=== PATIENT | male | born 1955 | race Caucasian/White ===

== ENCOUNTER → 2019-07-09 | Day surgery (SDC) | payer MEDICARE, BC ==
[~2019-07-09] MED LIST: Buffered Lidocaine 1% SYRIN* 1 ML/SYRINGE INTRADERM ONE; Bupivacaine 0.5% W/EPI SDV* 10 ML VIAL INJ ONE; Clindamycin 900 MG IVPREMIX(* 900 MG/50 ML SDV IV ONE; Clindamycin 900 MG/D5W BAG(*) 900 MG/50 ML BAG IVPB ONE; DiMENhydriNATE IV* 50 MG/ML VIAL IV PUSH PRN; EPHEDrine (Pressors)* 50 MG/ML VIAL ONE; Famotidine IV* 10 MG/ML 2 ML (20 mg) IV ONE; Famotidine IV* 10 MG/ML 2 ML (20 mg) ONE; Glycopyrrolate IV* 0.2 MG/ML 1 ML VIAL ONE; HYDROcodone/ACETAMIN 5-325 MG* 1 TAB PO PRN; Ketorolac INJ* 30 MG/ML 1 ML VIAL IV PRN; Ketorolac INJ* 30 MG/ML 1 ML VIAL ONE; Lactated Ringers 1000 ML Bag* 1,000 ML IV SCH; Lidocaine 2% PF * 5 ML VIAL ONE; Metoprolol Tartrate IV* 1 MG/ML 5 ML VIAL ONE; Midazolam* 1 MG/ML 5 ML VIAL (5 MG) ONE; Naloxone* 0.4 MG/ML 1 ML VIAL IV PRN; Neostigmine Methylsulfate* 3 MG/3 ML SYRINGE ONE; Ondansetron INJ* 2 MG/ML VIAL ONE; Phenylephrine 10 MG/ML VIAL* 1 ML VIAL ONE; Propofol* 10 MG/ML 20 ML BTL ONE; Rocuronium* 10 MG/ML VIAL ONE; Succinylcholine* 20 MG/ML 10 ML VIAL ONE; fentaNYL* 50 MCG/ML 2 ML VIAL (100 MCG VIAL) IV PRN; fentaNYL* 50 MCG/ML 2 ML VIAL (100 MCG VIAL) ONE; fentaNYL* 50 MCG/ML 5 ML VIAL (250 MCG VIAL) ONE; oxyCODONE/Acetamin 5/325 MG* TAB ONE; oxyCODONE/Acetamin 5/325 MG* TAB PO PRN
[2019-07-09 20:20] VITALS: BP 147/78
--- NOTE | 2019-07-10 22:42 | OP ---
OPERATIVE REPORT: DATE OF OPERATION: 07/09/19 DATE OF : 51 SURGEON: Emile Tee MD OLDER ADULT SOCIAL WORK SPECIALIST: MICHAEL Funez A physician asset protection assistant was required for the length of the procedure for assistance with the patient's positioning, retraction, instrumentation, and closure. ANESTHESIOLOGIST: Julio César Cramer MD. ANESTHESIA: General anesthesia, local anesthesia using 10 cc of Marcaine 0.5% with epinephrine. PRE-OP DIAGNOSIS: Left ankle trimalleolar fracture. POST-OP DIAGNOSIS: Left ankle trimalleolar fracture. OPERATIVE PROCEDURE: Open reduction and internal fixation, left ankle trimalleolar fracture without posterior instrumentation. Medial and lateral malleoli were instrumented. [id number] TIME: 135 minutes. Xywk-zp-qdey time was normal than average given that it had been 3 weeks from the fracture requiring some more debridement and effort for fracture fragment reduction. TOURNIQUET TIME: 120 minutes. ANTIBIOTICS: Clindamycin 900 mg IV. IV FLUIDS: 1800 cc of crystalloid. SPECIMEN: None. EBL: Minimal. COMPLICATIONS: None IMPLANTS: Synthes one-third tubular plate about the lateral ankle with 3.5 mm non- locking, 3.5 mm locking and 4.0 mm non-locking screws placed through it. As well placed using lag technique directly across the fracture site was one fully threaded 3.5 mm non-locking screw. About the medial ankle were 2 cannulated 4.0 mm partially threaded, long threaded screws. RADIATION EXPOSURE: C-arm. Time of exposure not recorded by me. INDICATION FOR PROCEDURE: The patient is a 63-year-old male with multiple medical problems including a history of cardiac arrest in 2011, hypertropic cardiomyopathy, endocarditis history, coronary artery disease, diabetes mellitus , BMI of 41.4 and a weight of 314 pounds, who fractured his left ankle while on vacation in [facility] on 06/19/19, 20 days prior to surgery. The patient went to [facility] after his fall in [facility] It took 3 reductions in the emergency department to obtain an adequate reduction of the patient's subluxed ankle joint. The patient was splinted and then followed up with me in clinic. We removed the split in clinic to do a skin check and the patient had very large blood blisters throughout the ankle. This was very significant. They were in the path of future skin incisions required for surgery. The blood in the blisters indicated that they were more deep blisters and they were phenomenally large in size. At that clinic visit, I unroofed all the blisters. I placed a non-adherent dressing followed by dry sterile dressing, followed by short leg cast. We instructed the patient on strict left lower extremity elevation and warmed him of the consequences of not doing this, including delayed surgery in future, wound breakdown and wound infection. The following week, when we did a skin check, the patient's skin at the location of the blisters had healed remarkably, although not yet fully. The patient still had significant soft tissue swelling. The patient was placed back in a short leg cast, told to be better about elevation of the left lower extremity and presents for operation today. Discussed risks and potential complications of surgery including bleeding, infection, nerve or blood vessel injury, ankle pain, stiffness, osteoarthritis. Again, the patient is well aware of the risks of infection, wound breakdown, need for removal of future hardware. I had obtained the CT scan which showed the posterior malleolar fracture fragment to be small and minimally displaced, not requiring fixation. I spoke to the patient about fixation, reduction of the medial and lateral malleoli. I told him I will stress test the syndesmosis to see if that would need fixing. DESCRIPTION OF PROCEDURE: In the preop holding, the patient signed a written consent. Operative extremity was marked in the preoperative holding. The patient was taken back to the operating room and placed supine on the operating room table, sedated and intubated. Tourniquet placed around the left thigh. A blanket bump placed under the dheeraj- pelvis. Bone bump placed under the left lower extremity. The left lower extremity was prepped and draped. The ankle area was vigorously prepped so any loose skin would exfoliate. However, I did not use a bristling scrub brush to brush aside on it. Surgical time-out was performed. Esmarch was applied and tourniquet was elevated to 300 mmHg. I started at about the medial ankle because of the non-comminuted nature of the fracture there. Medial approach to the left ankle. Skin through subcutaneous tissue to bone. Retracted saphenous neurovascular structures away from fracture site. Opened fracture site. Debrided a significant amount of new fibrous tissue. Performed reduction. Had provisional reduction with some K-wires. Next placed two 1.2 mm K-wires across the fracture site. Drilled over this and placed 2 partially threaded 4.0 mm cannulated screws. Purchase with each of them was excellent. Radiographs with C-arm intraoperatively confirmed excellent location of the K- wires. Excellent reduction and location of the cannulated screws. This made the mortise appear very symmetric. Irrigation of the medial ankle wound. Partial closure of the subcutaneous layer with buried simple stitches using Vicryl 3.0 suture. I moved to the lateral ankle. I made incision, for standard approach to the lateral ankle. Dissected down through subcutaneous tissue to a periosteal hematoma layer. Incised this longitudinally to reveal bone. Careful not to injure any low lying superficial peroneal nerve branch. None was encountered intraoperative. Fracture site was identified. It was quite displaced and shortened. I debrided fracture with a curette rongeur. Reduction at first not feasible. I asked anesthesia for some paralysis and we tried harder and we were able to bring the fibula out to length, corrective rotation. With the fibula reduced, I placed 2 lag screws using classic lag technique, across the fracture site from posterior to anterior using 3.5 mm screws. Purchase in the more proximal screw was excellent. Purchase in the more distal screw was not excellent. I left these [address] for now. I sized and found an appropriate location for one-third tubular plate. Radiographs, 3 views, confirmed excellent reduction of bones and location of plate and lag screws. I was concerned that the more distal lag screw might enter slightly into the syndesmotic space between bones. I contoured the one-third tubular plate. I placed non-locking screws through the proximal and distal of the fracture site. I filled the plate up with screws , the remaining locking. Obtained final radiographs. I liked position of hardware and reduction of bone. I removed the more distal of the 2 lag screws because of poor purchase and concerns about its length. I performed a Cotton test and confirmed no unstable syndesmosis. Irrigation of lateral wound. Closure of some deeper fascia with figure-of- eight stitches using Vicryl 2-0 suture. Closure of the subcutaneous tissue with buried simple stitches using Vicryl 3-0 suture. Closure of the skin on the medial and lateral side with clayton. The tourniquet had been dropped at the 2-hour point, 120 minutes. Local anesthesia injected about each incision site. For dressing, Xeroform, 4x4s, sterile Webril, then Webril, then a posterior SLAP and a sugar tong splint, all with plaster, overwrapped with an Heath bandage in the ankle and then a plantar grade position. The patient was awakened, extubated and transferred to the PACU. DISPOSITION: The patient knows he is to be non-weightbearing at all times left lower extremity. He can use a knee scooter or crutches. The patient is to take aspirin 325 mg p.o. b.i.d. x2 weeks for DVT prophylaxis. Because of some allergies, we will have him on doxycycline b.i.d. x7 days for infection prophylaxis. This is given the patient's multiple medical problems, his obesity , his diabetes and the high energy nature of his trimalleolar fracture subluxation. The patient was given Percocet as needed for pain control. The patient will follow up with me in clinic in 10 to 14 days postoperatively for wound check, x-rays, and transition to cast. [id number]/CPS #: [id number] MTDD
== END | disposition home or self-care (01) ==
LOC: OR 11:32
PROVIDERS: ATTEND Orthopaedic Surgery
DX: S82.852A Displaced trimalleolar fracture of left lower leg, initial encounter for closed fracture (principal); E11.9 Type 2 diabetes mellitus without complications; Z79.84 Long term (current) use of oral hypoglycemic drugs; Z88.0 Allergy status to penicillin; Z88.1 Allergy status to other antibiotic agents; I44.7 Left bundle-branch block, unspecified; E78.5 Hyperlipidemia, unspecified; I42.2 Other hypertrophic cardiomyopathy; G47.33 Obstructive sleep apnea (adult) (pediatric); Z95.810 Presence of automatic (implantable) cardiac defibrillator; E05.90 Thyrotoxicosis, unspecified without thyrotoxic crisis or storm; W18.2XXA Fall in (into) shower or empty bathtub, initial encounter; Y92.9 Unspecified place or not applicable
CPT/HCPCS: 76000; A9270-GY; C1713; C1776; J0330; J1885; J2250; J2405; J2704; J2710; J3010; J3490

== ENCOUNTER 2024-07-05 17:21 | Inpatient (IN) ==
[2024-07-05 18:59] LABS: ABS Lymphocytes 0.5 10^3/uL (1.0-4.8); ABS Monocytes 1.4 10^3/uL (0.0-1.1); ABS Neutrophils 16.1 10^3/uL (1.5-7.6); ABS Nucleated RBC 0.02 10^3/ul; Eosinophil % 0.1 %; Hematocrit 46.8 % (38-53); Lymphocyte % 2.8 %; Mean Corpuscular Hemoglobin 30.5 pg (27-33); Mean Corpuscular Hgb Conc 34.3 g/dL (31-36); Mean Corpuscular Volume 88.9 fL (80-97); Mean Platelet Volume 7.2 fL (7.5-11.2); Nucleated Red Blood Cells % 0.1 %/100WBC (0.0-0.8); Platelet Count 191 10^3/uL (150-450); Red Blood Count 5.27 10^6/uL (4.06-5.63); Red Cell Distribution Width 14.5 % (12-17)
[2024-07-05 19:23] LABS: High Sens Troponin Baseline 15 pg/mL (<20)
[2024-07-05 19:35] LABS: ALT 22 U/L (7-52); AST 19 U/L (13-39); Albumin 4.3 g/dL (3.2-5.2); Albumin/Globulin Ratio 1.3 (1-3); Alkaline Phosphatase 68 U/L (35-149); Anion Gap 9 mmol/L (2-16); Blood Urea Nitrogen 22 mg/dL (6-24); C Reactive Protein 143.31 mg/L (<8.01); CO2 Carbon Dioxide 25 mmol/L (22-32); Calcium 9.4 mg/dL (8.6-10.3); Chloride 100 mmol/L (101-111); Creatinine, Serum 1.18 mg/dL (0.67-1.17); Globulin 3.2 g/dL (2-4); Glucose 144 mg/dL (70-100); Lipase < 10 U/L (11.0-82.0); Potassium 4.6 mmol/L (3.5-5.0); Sodium 134 mmol/L (135-145); Total Bilirubin 3.2 mg/dL (0.2-1.0); Total Protein 7.5 g/dL (6.4-8.9); eGFR CKD-EPI 66.4 (>60)
[2024-07-05 20:14] LABS: Urine Appearance Clear; Urine Bilirubin Negative (Negative); Urine Blood Negative (Negative); Urine Color Yellow; Urine Glucose Negative (Negative); Urine Ketones Negative (Negative); Urine Nitrite Negative (Negative); Urine Protein 1+ (>=30 mg/dL) (Negative); Urine Specific Gravity 1.019 (1.002-1.030); Urine Urobilinogen Negative (Negative); Urine pH 5.5 (5.0-8.0)
[2024-07-05 20:16] LABS: Urine Bacteria Absent /HPF (Absent); Urine Red Blood Cell Trace(0-2/hpf) /HPF (0-Trace); Urine White Blood Cell Trace(0-5/hpf) /HPF (0-Trace)
[2024-07-05] MEDS: Iodixanol (CONTRAST) 320 MG/ML 100 ML SDV IV ONE (20:28)
[2024-07-05 20:36] LABS: High Sensitivity Troponin 1 Hr 16 pg/mL (<20)
[2024-07-05] MEDS: NS 0.9% 1000 ml BAG 1,000 ML IV ONE (20:39)
[2024-07-05] MEDS ORDERED: Dextrose 50% Syringe 50 ml 25 GM/50 ML SYRINGE IV PUSH PRN (22:06)
[2024-07-05] MEDS ORDERED: Sulfur Hexaflouride MICROSPHR 25 MG VIAL IV PRN (22:07)
[2024-07-05] MEDS: Ondansetron 4 mg VIAL 2 MG/ML 2 ml VIAL IV PRN (23:04)
[2024-07-05 23:07] LABS: TSH Ultra Thyroid Stim Horm 0.36 mcIU/mL (0.34-5.60)
[2024-07-05] MEDS: Lactated Ringers 1000 ml BAG 1,000 ML IV ONE (23:15)
[2024-07-06] MEDS: metroNIDAZOLE IV 500 MG/100ML 500 MG/100 ML BAG IVPB ONE (00:03)
[2024-07-06] MEDS: Acetaminophen IV 1 GM/100ML 1,000 MG/100 ML BAG IV PRN (03:57)
[2024-07-06] MEDS: Lactated Ringers 1000 ml BAG 1,000 ML IV ONE (06:17)
[2024-07-06 06:39] LABS: Hematocrit 43.1 % (38-53); Hemoglobin 14.6 g/dL (13.2-16.3); Mean Corpuscular Volume 88.2 fL (80-97); Mean Platelet Volume 7.1 fL (7.5-11.2); Platelet Count 169 10^3/uL (150-450); Red Blood Count 4.89 10^6/uL (4.06-5.63); Red Cell Distribution Width 14.8 % (12-17); White Blood Count 12.5 10^3/uL (3.6-10.2)
[2024-07-06 06:58] LABS: ABS Lymphocytes 0.4 10^3/uL (1.0-4.8); ABS Monocytes 1.1 10^3/uL (0.0-1.1); ABS Neutrophils 10.5 10^3/uL (1.5-7.6); Eosinophil % 0.1 %; Lymphocyte % 3.3 %
[2024-07-06 07:26] LABS: Anion Gap 10 mmol/L (2-16); Blood Urea Nitrogen 26 mg/dL (6-24); CO2 Carbon Dioxide 21 mmol/L (22-32); Calcium 8.2 mg/dL (8.6-10.3); Chloride 103 mmol/L (101-111); Creatinine, Serum 1.17 mg/dL (0.67-1.17); Glucose 145 mg/dL (70-100); Sodium 134 mmol/L (135-145); eGFR CKD-EPI 67.1 (>60)
[2024-07-06] MEDS: metroNIDAZOLE IV 500 MG/100ML 500 MG/100 ML BAG IVPB SCH (08:08)
[2024-07-06 08:22] LABS: Magnesium 1.8 mg/dL (1.9-2.7); Potassium Redraw 4.3 mmol/L (3.5-5.0)
[2024-07-06] MEDS: Magnesium Sulfate 2 gm BAG 2 GM/50 ML BAG IVPB ONE (11:45)
[2024-07-06] MEDS: Magnesium Sulfate 2 gm BAG 2 GM/50 ML BAG ONE (11:54)
[2024-07-07 05:58] LABS: ABS Eosinophils 0.3 10^3/uL (0.0-0.5); ABS Lymphocytes 0.7 10^3/uL (1.0-4.8); ABS Monocytes 1.2 10^3/uL (0.0-1.1); ABS Neutrophils 7.8 10^3/uL (1.5-7.6); Eosinophil % 2.6 %; Hemoglobin 13.5 g/dL (13.2-16.3); Lymphocyte % 6.8 %; Mean Corpuscular Hemoglobin 30.3 pg (27-33); Mean Corpuscular Hgb Conc 33.8 g/dL (31-36); Mean Corpuscular Volume 89.5 fL (80-97); Mean Platelet Volume 7.8 fL (7.5-11.2); Platelet Count 171 10^3/uL (150-450); Red Blood Count 4.46 10^6/uL (4.06-5.63)
[2024-07-07 06:16] LABS: Calcium 8.8 mg/dL (8.6-10.3); Creatinine, Serum 1.19 mg/dL (0.67-1.17); Potassium 4.4 mmol/L (3.5-5.0); eGFR CKD-EPI 65.7 (>60)
[2024-07-07] MEDS ORDERED: Propofol 10 MG/ML 20 ML BTL ONE ×2 (09:29→13:44)
[2024-07-07] MEDS ORDERED: Lidocaine 2% PF 5 ML VIAL ONE ×2 (09:29→13:44)
[2024-07-07] MEDS ORDERED: fentaNYL 100 mcg/2 ml 50 MCG/ML VIAL ONE ×2 (09:29→13:44)
[2024-07-07] MEDS ORDERED: Bupivacaine 0.5% SDV PF 30ML VIAL ONE (13:14)
[2024-07-07] MEDS ORDERED: Lidocaine 1% w EPI 1:100,000 MDV 20 ML VIAL ONE (13:14)
[2024-07-07] MEDS ORDERED: Midazolam 2 mg/2 ml VIAL 1 mg/ml 2 ml VIAL (2 mg) ONE (13:44)
[2024-07-07] MEDS ORDERED: Rocuronium 50 mg VIAL 10 mg/ml 5 ml VIAL (50 mg) ONE (13:45)
[2024-07-07] MEDS ORDERED: Phenylephrine 40 mcg/mL 10mL (400mcg) SYRINGE ONE (13:49)
[2024-07-07] MEDS ORDERED: Succinylcholine 200 mg VIAL 20 mg/ml 10 ml VIAL (200 mg) ONE ×2 (13:51→14:24)
[2024-07-07] MEDS ORDERED: Ondansetron 4 mg VIAL 2 MG/ML 2 ml VIAL ONE (14:33)
[2024-07-07] MEDS ORDERED: Dexamethasone IV 4 MG/ML VIAL 1 ml VIAL ONE (14:33)
[2024-07-07] MEDS: Buffered Lidocaine 1% SYRIN 1 ml INTRADERM ONE (15:15)
[2024-07-07] MEDS: Acetaminophen IV 1 GM/100ML 1,000 MG/100 ML BAG IV ONE (15:15)
[2024-07-07] MEDS: Scopolamine 1 mg/72hr PATCH TRANSDERM ONE (15:15)
[2024-07-07] MEDS ORDERED: fentaNYL 100 mcg/2 ml 50 MCG/ML VIAL IV PRN (15:18)
[2024-07-07] MEDS ORDERED: Naloxone 0.4 mg VIAL 0.4 mg/ml 1 ml VIAL IV PRN (15:18)
[2024-07-07] MEDS ORDERED: Ondansetron 4 mg VIAL 2 MG/ML 2 ml VIAL IV PRN (15:18)
[2024-07-07] MEDS ORDERED: Metoclopramide 5 MG/ML VIAL (10 mg) IV PRN (15:18)
[2024-07-07] MEDS ORDERED: Lactated Ringers 1000 ml BAG 1,000 ML IV SCH (16:00)
[2024-07-07] MEDS ORDERED: NS 0.45% 1000 ml BAG 1,000 ML IV SCH (16:00)
[2024-07-08 05:42] VITALS: BP 158/73
== END 2024-07-08 10:40 | disposition home or self-care (01) | DRG 398 ==
LOC: ED 17:21 → EDHOLD 17:21 → SSU 22:23
PROVIDERS: ADMIT Hospitalist; ATTEND Hospitalist

== ENCOUNTER 2024-07-18 14:26 | Inpatient (IN) ==
[2024-07-18] MEDS: Lactated Ringers 1000 ml BAG 1,000 ML IV SCH (15:17)
[2024-07-18 15:28] LABS: ABS Basophils 0.1 10^3/uL (0.0-0.1); ABS Eosinophils 0.1 10^3/uL (0.0-0.5); ABS Lymphocytes 2.5 10^3/uL (1.0-4.8); ABS Monocytes 1.3 10^3/uL (0.0-1.1); ABS Neutrophils 19.4 10^3/uL (1.5-7.6); ABS Nucleated RBC 0.01 10^3/ul; Eosinophil % 0.6 %; Hematocrit 31.6 % (38-53); Hemoglobin 10.5 g/dL (13.2-16.3); Lymphocyte % 10.5 %; Mean Corpuscular Hemoglobin 29.6 pg (27-33); Mean Corpuscular Hgb Conc 33.4 g/dL (31-36); Mean Corpuscular Volume 88.5 fL (80-97); Mean Platelet Volume 7.6 fL (7.5-11.2); Platelet Count 435 10^3/uL (150-450); Red Blood Count 3.57 10^6/uL (4.06-5.63); Red Cell Distribution Width 14.4 % (12-17); White Blood Count 23.4 10^3/uL (3.6-10.2)
[2024-07-18 15:58] LABS: Urine Appearance Clear; Urine Bilirubin Negative (Negative); Urine Blood Negative (Negative); Urine Color Light-Yellow; Urine Glucose Negative (Negative); Urine Ketones Negative (Negative); Urine Nitrite Negative (Negative); Urine Protein Negative (Negative); Urine Specific Gravity 1.023 (1.002-1.030); Urine Urobilinogen Negative (Negative)
[2024-07-18 16:24] LABS: Albumin 3.7 g/dL (3.2-5.2); Albumin/Globulin Ratio 1.5 (1-3); C Reactive Protein 2.02 mg/L (<8.01); Calcium 9.7 mg/dL (8.6-10.3); Creatinine, Serum 0.95 mg/dL (0.67-1.17); Globulin 2.5 g/dL (2-4); Potassium 5.2 mmol/L (3.5-5.0); Total Bilirubin 0.6 mg/dL (0.2-1.0); Total Protein 6.2 g/dL (6.4-8.9); eGFR CKD-EPI 86.1 (>60)
[2024-07-18 16:37] LABS: Activated Partial Thrombo Time 28.5 seconds (26.0-38.0); INR 1.14 (0.85-1.14)
[2024-07-18 16:45] LABS: High Sensitivity Troponin 1 Hr 12 pg/mL (<20)
[2024-07-18] MEDS: Iodixanol (CONTRAST) 320 MG/ML 100 ML SDV IV ONE (17:42)
[2024-07-18] MEDS: Pantoprazole VIAL 40 MG VIAL IV ONE (18:01)
[2024-07-18] MEDS: Cefepime 2 GM in Dextrose 2 GM/50 ML BAG IV ONE (18:06)
[2024-07-18] MEDS: metroNIDAZOLE IV 500 MG/100ML 500 MG/100 ML BAG IVPB ONE (19:30)
[2024-07-19] MEDS ORDERED: Ondansetron 4 mg VIAL 2 MG/ML 2 ml VIAL IV PRN (07:27)
[2024-07-19] MEDS: Lactated Ringers 1000 ml BAG 1,000 ML IV SCH (08:47)
[2024-07-19 08:59] LABS: Hematocrit 23.6 % (38-53); Hemoglobin 7.9 g/dL (13.2-16.3); Mean Corpuscular Hemoglobin 29.5 pg (27-33); Mean Corpuscular Hgb Conc 33.7 g/dL (31-36); Mean Corpuscular Volume 87.7 fL (80-97); Mean Platelet Volume 7.6 fL (7.5-11.2); Platelet Count 348 10^3/uL (150-450); Red Blood Count 2.69 10^6/uL (4.06-5.63); Red Cell Distribution Width 14.6 % (12-17); White Blood Count 24.6 10^3/uL (3.6-10.2)
[2024-07-19 09:20] LABS: Calcium 8.7 mg/dL (8.6-10.3); Creatinine, Serum 1.09 mg/dL (0.67-1.17); Magnesium 1.8 mg/dL (1.9-2.7); Potassium 4.5 mmol/L (3.5-5.0)
[2024-07-19] MEDS: Pantoprazole VIAL 40 MG VIAL IV SCH (09:55)
[2024-07-19] MEDS: Lactated Ringers 1000 ml BAG 1,000 ML IV ONE ×2 (10:02→17:31)
[2024-07-19] MEDS ORDERED: Midazolam 10 mg/10 ml VIAL 1 mg/ml 10 ml VIAL (10 mg) ONE (10:39)
[2024-07-19] MEDS ORDERED: fentaNYL 100 mcg/2 ml 50 MCG/ML VIAL ONE (10:39)
[2024-07-19 16:30] LABS: Hemoglobin 8.1 g/dL (13.2-16.3); Mean Corpuscular Hemoglobin 28.5 pg (27-33); Mean Corpuscular Hgb Conc 33.6 g/dL (31-36); Mean Corpuscular Volume 84.9 fL (80-97); Mean Platelet Volume 7.4 fL (7.5-11.2); Platelet Count 280 10^3/uL (150-450); Red Blood Count 2.83 10^6/uL (4.06-5.63); Red Cell Distribution Width 18.3 % (12-17); White Blood Count 21.4 10^3/uL (3.6-10.2)
[2024-07-19] MEDS: Benzocaine/Menthol LOZ PO PRN (21:06)
[2024-07-20 09:23] LABS: Hematocrit 20.2 % (38-53); Hemoglobin 6.7 g/dL (13.2-16.3); Mean Corpuscular Hemoglobin 29.3 pg (27-33); Mean Corpuscular Hgb Conc 33.4 g/dL (31-36); Mean Corpuscular Volume 87.8 fL (80-97); Mean Platelet Volume 7.7 fL (7.5-11.2); Platelet Count 204 10^3/uL (150-450); Red Cell Distribution Width 18.8 % (12-17)
[2024-07-20] MEDS: Ondansetron ODT 4 mg TAB 4 MG TAB SL PRN (12:00)
[2024-07-20 14:21] LABS: Hematocrit 23.2 % (38-53); Hemoglobin 7.9 g/dL (13.2-16.3); Mean Corpuscular Hemoglobin 29.5 pg (27-33); Mean Corpuscular Hgb Conc 34.1 g/dL (31-36); Mean Corpuscular Volume 86.5 fL (80-97); Mean Platelet Volume 7.1 fL (7.5-11.2); Platelet Count 245 10^3/uL (150-450); Red Blood Count 2.68 10^6/uL (4.06-5.63); Red Cell Distribution Width 17.8 % (12-17); White Blood Count 14.8 10^3/uL (3.6-10.2)
[2024-07-21 06:34] LABS: Hematocrit 20.4 % (38-53); Hemoglobin 7.1 g/dL (13.2-16.3); Mean Corpuscular Hemoglobin 30.3 pg (27-33); Mean Corpuscular Hgb Conc 34.7 g/dL (31-36); Mean Corpuscular Volume 87.3 fL (80-97); Mean Platelet Volume 7.5 fL (7.5-11.2); Platelet Count 216 10^3/uL (150-450); Red Blood Count 2.34 10^6/uL (4.06-5.63); Red Cell Distribution Width 18.1 % (12-17); White Blood Count 12.8 10^3/uL (3.6-10.2)
[2024-07-21 10:50] LABS: Ferritin 127.7 ng/mL (24-336)
[2024-07-21 12:08] LABS: Hematocrit 22.1 % (38-53); Hemoglobin 7.2 g/dL (13.2-16.3)
[2024-07-21 14:05] VITALS: BP 127/58
[2024-07-21] MEDS ORDERED: Polyethylene Glycol 3350 17 GM PACKET PO SCH (21:00)
== END 2024-07-21 16:45 | disposition home or self-care (01) | DRG 384 ==
LOC: ED 14:26 → EDHOLD 14:26 → MED 07-19 13:09 → SUATTDRO 07-19 14:00
PROVIDERS: ADMIT Internal Medicine; ATTEND Student in an Organized Health Care Education/Training Program